=== PATIENT | female | born 1985 | race Asian ===

== ENCOUNTER 2019-04-08 12:39 | Day surgery (SDC) | payer OTHER ==
--- NOTE | 2019-04-08 12:43 | PDOC ---
History of Present Illness - General Chief Complaint: ,Possible Stated Complaint: ECTOPIC PREG Time Seen by Provider: 04/08/19 12:41 History Source: Patient Exam Limitations: No Limitations - History of Present Illness Initial Comments: 04/08/19 12:42 PCP: Dr. Josemanuel Velazquez OB: Dr. Cheung HPI: 33yo PMH hypothyroidism, presenting from her OB office (Dr. Cheung) with reported early right-sided ectopic . Denies symptoms at this time , no pain, nausea, vomiting, CP, SOB, fevers, chills, recent illnesses, dysuria , changes in BMs. Last meal was last night - nothing but 1 sip of water with her synthroid this morning. Spoke with Fellow Pattie Santillan at Dr. Cheung's office. Patient underwent embryo transfer in February. Found to have abnormally elevated beta-HCG (3000) on 04/06/19, TVUS without IUP and questionable right-sided ectopic gestational sac. Returned today with TVUS ~1 hour ago confirming a right-sided ectopic . Discussion with patient regarding MTX vs salpingectomy, patient opted for surgical management. Plan for OR at 2:30 as add-on case with Dr. Cheung and Fellow Jessika. Patient has reportedly been asymptomatic, without pain, bleeding, and soft, NTND abdomen at the clinic office. Fellow states that there is no need for an additional ultrasound and requests basic preop labs / IVF in addition to any other workup. Patient took her synthroid this AM with a sip of water, otherwise has been NPO today. All: PCNs Meds: Synthroid, Vitamins, S/p progesterone PMH: Hypothyroid PSH: Denies SHx: No smoking, ETOH, Illicits Past History - Past Medical History Allergies/Adverse Reactions: Allergies Allergy/AdvReac Type Severity Reaction Status Date / Time Penicillins Allergy Verified 04/08/19 12:41 Home Medications: Ambulatory Orders Levothyroxine [Synthroid -] 75 mcg PO DAILY 04/08/19 Review of Systems - Review of Systems Able to Perform ROS?: Yes Is the patient limited Latvian proficient: Yes Constitutional: No: Chills, Fever, Weakness HEENTM: No: Recent change in vision, Nose Congestion, Throat Pain Respiratory: No: Cough, Shortness of Breath, Wheezing Cardiac (ROS): No: Chest Pain, Irregular Heart Rate, Chest Tightness ABD/GI: No: Abdominal Distended, Constipated, Diarrhea, Nausea, Poor Appetite, Poor Fluid Intake, Vomiting : No: Burning, Dysuria, Discharge Musculoskeletal: No: Muscle Pain, Muscle Weakness, Neck Pain Integumentary: No: Dryness, Erythema, Pallor, Rash Neurological: No: Headache, Numbness, Tingling, Weakness Endocrine: No: Intolerance to Cold, Intolerance to Heat Hematologic/Lymphatic: No: Anemia, Blood Clots, Easy Bleeding All Other Systems: Reviewed and Negative *Physical Exam - Physical Exam 04/08/19 13:11 Vitals reviewed, AFVSS GEN: Well appearing, appears stated age, NAD, comfortable. AAOx3. HEENT: NCAT, EOMI, PERRL. Sclera anicteric, noninjected. No facial asymmetry. Moist mucous membranes. Normal voice. [place] midline. CV: RRR, S1/S2, no murmurs / rubs / gallops appreciated. LUNG: CTAB, normal work of breathing. No wheezes, rales, rhonchi. No cough. Speaking full sentences. GI: Soft, NTND, +BS, no guarding, no rebound. No masses. Neg CVAT b/l. EXTREMITIES: 2+ distal pulses. No LE edema. No obvious deformities of all extremities. SKIN: Warm, dry, no rashes appreciated, non-jaundiced. PSYCH: Normal mood and affect. Cooperative and appropriate. NEURO: CN grossly intact. Moving all extremities well. Normal strength and sensation grossly. ED Treatment Course - LABORATORY CBC & Chemistry Diagram: 04/08/19 13:00 04/08/19 13:00 Medical Decision Making - Medical Decision Making 04/08/19 13:06 33yo PMH hypothyroidism, presenting from her OB office (Dr. Cheung) with reported early right-sided ectopic . Asymptomatic, clinically stable, vitals stable. Plan for OR at 1:45 per OBGYN / OR Staff. - CBC, CMP, Beta-HCG, T&S, Coags - UA, U Preg - TVUS not needed per OBGYN, last ~ 1 hour ago at clinic - IVF Maintenance @ 125/hr - Plan for OR at 1:45PM 04/08/19 13:15 - Urine collected and sent Dispo: OR with Dr. Cheung 04/08/19 13:27 - +[place] in urine, fluids changes to 1L bolus, no UTI - No leukocytosis, H&H stable without anemia Discharge - Discharge Information Problems reviewed: Yes Clinical Impression/Diagnosis: Ectopic Qualifiers: Location of ectopic : tubal Intrauterine status: unspecified Laterality: right Qualified Code(s): O00.101 - Right tubal without intrauterine Condition: Stable - Admission Yes - Follow up/Referral - Patient Discharge Instructions - Post Discharge Activity
[2019-04-08 12:45] VITALS: BMI 24.0
[2019-04-08] MEDS ORDERED: SODIUM CHLORIDE 1,000 ML IV SCH (13:00)
[2019-04-08 13:21] LABS: BASO % 0.4 % (0-2.0); EOS % 2.9 % (0-4.5); HEMATOCRIT 42.3 % (32.4-45.2); HEMOGLOBIN 13.9 GM/dl (10.7-15.3); LYMPH % 20.7 % (8-40); MCH 29.7 pg (25.7-33.7); MEAN PLT VOLUME 9.6 fl (7.5-11.1); MONO % 7.6 % (3.8-10.2); NEUT % 68.4 % (42.8-82.8); PLATELET COUNT 256 K/MM3 (134-434); RDW 12.6 % (11.6-15.6); WHITE BLOOD COUNT 9.2 K/mm3 (4.0-10.8)
--- NOTE | 2019-04-08 13:21 | PDOC ---
Attending Attestation - Resident Resident Name: Mikael Henley - ED Attending Attestation I have performed the following: I have examined & evaluated the patient, The case was reviewed & discussed with the resident, I agree w/resident's findings & plan, Exceptions are as noted - HPI HPI: 04/08/19 13:18 33 yo G1po s/p embryo transfer 02/2019 here with right sided ectopic. pt was seen by ob/ urogynaecologist dr Olson, found to have right sided ectopic. here for evaluation possible OR. no vaginal bleeding. no current complaints of pain. last meal was evening pror. no other complaints. us performed in DR Olson office, confirmed right sided ectopic. - Physicial Exam PE: 04/08/19 13:20 awake alert lungs clear bilat heart rrr no mrg abd soft nt nd ext wwp. skin warm and dry. pelvic exam defereed ( sent from OB/ urogynaecologist office ) - Medical Decision Making 04/08/19 13:20 33 yo F currently with right sided ecoptic confirmed on outside us in DR Olson office. plan d/w dr calvo, pt to go to OR labs sent for preop. pt npo.
[2019-04-08] MEDS ORDERED: SODIUM CHLORIDE 0.9% 500 ML INFUS.BAG IV ONE (13:26)
[2019-04-08 13:30] LABS: INR 1.14 (0.82-1.09); PROTHROMBIN TIME (PATIENT) 12.7 SEC (10.2-13.0)
[2019-04-08 13:31] LABS: ALBUMIN 4.1 g/dl (3.4-5.0); BILIRUBIN,TOTAL 0.5 mg/dl (0.2-1); CALCIUM 8.8 mg/dl (8.5-10); CREATININE 0.6 mg/dl (0.55-1.3); POTASSIUM 3.6 mmol/L (3.5-5.1); TOT PROT 7.4 g/dl (6.4-8.2)
[2019-04-08] MEDS ORDERED: ROCURONIUM BROMIDE 50 MG/5 ML SYRINGE ONE (13:36)
[2019-04-08] MEDS ORDERED: MIDAZOLAM HCL 2 MG/2 ML SINGLE DOSE VIAL ONE (13:36)
[2019-04-08] MEDS ORDERED: SUCCINYLCHOLINE CHLORIDE 200 MG/10 ML SYRINGE ONE (13:36)
[2019-04-08] MEDS ORDERED: PROPOFOL 20 ML ONE (13:36)
[2019-04-08 13:44] LABS: EPITHELIAL CELLS FEW /hpf; URINE MUCUS 1+
[2019-04-08] MEDS ORDERED: HEPARIN NA (PORCINE) 5,000 UNITS/ML 1ML VIAL ONE (13:53)
[2019-04-08] MEDS ORDERED: BUPIVACAINE HCL/PF 0.5% (5MG/ML) 10 ML VIAL ONE (13:53)
[2019-04-08] MEDS ORDERED: VASOPRESSIN 20 UNITS/ML VIAL IV ONE (14:31)
[2019-04-08] MEDS ORDERED: EPHEDRINE SULFATE/0.9% NACL/PF 50 MG/10 ML SYRINGE NR ONE (14:49)
[2019-04-08] MEDS ORDERED: NEOSTIGMINE METHYLSULFATE 0.5 MG/ML - 10 ML MDV ONE (15:53)
[2019-04-08] MEDS ORDERED: BUPIVACAINE HCL/PF 0.5% (5MG/ML) 10 ML VIAL IJ ONE (16:00)
[2019-04-08] MEDS ORDERED: oxyCODONE HCL 5 MG TABLET PO PRN (16:14)
[2019-04-08] MEDS ORDERED: ONDANSETRON 4 MG/2 ML VIAL IVPUSH PRN (16:14)
[2019-04-08] MEDS ORDERED: ONDANSETRON 4 MG/2 ML VIAL ONE (16:57)
[2019-04-08 18:35] VITALS: BP 98/65
[2019-04-08 19:45] VITALS: PULSE 75; TEMP 97.9
--- NOTE | 2019-04-11 09:51 | OP ---
DATE OF OPERATION: 04/08/2019 DICTATOR: Enrique Rosen MD COMMENT: Dictating on behalf of Sam Cheung MD HISTORY: Patient is a 33-year-old female who presented with a right tubal ectopic diagnosed on transvaginal ultrasound today. PROCEDURE: Right salpingectomy and removal of ectopic in the right tube. Lysis of adhesions for more than 45 minutes. INDICATION: Right tubal ectopic . PREOPERATIVE DIAGNOSIS: Right tubal ectopic . POSTOPERATIVE DIAGNOSIS: Right tubal ectopic . Marked pelvic adhesions including adhesions of the tubes and the ovaries bilaterally to the pelvic sidewall, the left tube to the rectosigmoid, and rectosigmoid to left pelvic sidewall, as well as significant filmy adhesions of the uterine fundus and the posterior uterus to the adnexa bilaterally. OPERATIVE FINDINGS: Include a normal appendix, normal upper abdominal survey with normal-appearing liver, normal-appearing bowel and omentum. DESCRIPTION OF PROCEDURE: The procedure began with the patient taken to the OR. She was induced for general anesthesia with endotracheal tube placed. The patient was prepped and draped with ChloraPrep and vaginal prep with Betadine, draped. A Valdes catheter was placed to the bladder under sterile conditions. Next, a speculum was placed in the vagina. The cervix was grasped with a tenaculum, and a HUMI uterine manipulator was placed in the uterus and with a pair of gloves the abdomen was entered by making a 5-mm intraumbilical vertical incision, and using a direct Optiview 5-mm trocar to enter the abdomen. Next, 5-mm laparoscopic ports were placed under direct visualization on the right and left lower quadrants. Then significant adhesions were noted at this time including as noted before, adnexal adhesions to the tubes with the ovaries not visible on the initial survey. In addition, there were filmy adhesions to the uterus that were at fundus that were first taken down sharply in addition to with the LigaSure. Next, the physiologic adhesion of the rectosigmoid colon was mobilized to improve visualization. These abnormal adhesions were of the rectosigmoid to the left adnexa were then taken down with a combination of blunt dissection and with a suction irrigation device, as well as sharp dissection and careful use of the LigaSure device. The left ovary and tube were then mobilized from the pelvis, and attention was turned to the right ovary and tube, which were more thoroughly adhesed in the pelvis. These were again with over 45 minutes of lysis of adhesions, finally removed until the anatomy could be identified, and the right tube was identified with ectopic . This was, at this point, we determined that the right tube was not salvageable, and no salpingectomy could be performed given the significant adhesions, so we used the LigaSure to serially go across the right tube starting at the distal fimbria across the mesosalpinx, and finally removed the tube from the proximal portion. This was removed through our 5-mm right lower quadrant trocar site in 2 pieces. Remaining ectopic trophoblastic tissue was then suctioned out and removed manually from the pelvis. The pelvis was irrigated thoroughly 3 times until all the entire pelvis and adhesions sites were noted to be hemostatic. The pelvic anatomy was restored to normal. At this point the procedure was completed. All laparoscopic ports were removed. The skin was closed with 4-0 Biosyn and Dermabond. The HUMI uterine manipulator was removed. The Valdes was removed, and the procedure was completed. The total fluids in the patient were 1 L of lactated Ringer's, 100 mL output of urine, and 10 mL EBL. SAM CHEUNG M.D. [id number]
--- NOTE | 2019-04-12 15:04 | PATH ---
Surgical Pathology Report Patient Name: BEREKET HENDRICKS [facility]. Rec. #: [id number] /Age/Gender: 1985 (Age: 33) / F Account: [id number] [facility] Taken: 04/08/2019 Received: 04/08/2019 Reported: 04/12/2019 Physicians: Sam Cheung M.D. Specimen(s) Received A: PELVIC ADHESIONS B: RIGHT FALLOPIAN TUBE, ECTOPIC Clinical History Ectopic status post IVF-right tubal ectopic Final Diagnosis A. PELVIC ADHESIONS, EXCISION: BENIGN FIBROVASCULAR TISSUE WITH MESOTHELIAL LINING. B. RIGHT FALLOPIAN TUBE, SALPINGECTOMY: ECTOPIC (TUBAL) . REMAINING FALLOPIAN TUBE WITH FOCAL ENDOMETRIOSIS. Electronically Signed Kayode Johnson M.D. Gross Description A. Received in formalin labeled "pelvic adhesions," is a 1.5 x 1.1 x 0.2 cm aggregate of bustamante fibrous tissue fragments. The specimen is submitted in toto in one cassette. B. Received in formalin labeled "right fallopian tube," are 2 portions of fallopian tube measuring 2.5 and 4.4 cm in length. The larger portion appears focally dilated. The outer surfaces are bustamante-brown with focal disruptions. Sectioning reveals an unremarkable lumen. Separately received within the same container is a 1.5 x 1.0 x 0.4 cm aggregate of red-brown hemorrhagic tissue with attached villous tissue. No somatic tissue is identified. Milk Receiver sections are submitted in 2 cassettes as follows: 1-separately received villous tissue; 2-cross sections of fallopian tube. 04/11/2019 [facility]04/11/2019
== END 2019-04-08 19:45 | disposition home or self-care (01) ==
LOC: FER 12:39 → FASU 13:07
PROVIDERS: ATTEND Obstetrics & Gynecology Reproductive Endocrinology
PROC: 0UB54ZZ Excision of Right Fallopian Tube, Percutaneous Endoscopic Approach (ICD-10-PCS; 2019-04-08)
PROC: 0UN74ZZ Release Bilateral Fallopian Tubes, Percutaneous Endoscopic Approach (ICD-10-PCS; 2019-04-08)
PROC: 10T24ZZ Resection of Products of Conception, Ectopic, Percutaneous Endoscopic Approach (ICD-10-PCS; principal; 2019-04-08 14:48)
DX: O00.101 Right tubal pregnancy without intrauterine pregnancy (principal)
CPT/HCPCS: 36415; 80053; 81003; 81015; 84702; 84703; 85025; 85610; 85730; 86850; 86900; 86901; 88304-TC; 88305-TC; 94760; 99283-25; J1644; J7030